=== PATIENT | male | born 1955 | race Caucasian/White ===

== ENCOUNTER 2017-06-24 09:02 | Emergency (ER) | payer BC ==
[2017-06-24] MEDS ORDERED: Sodium Chloride 0.9% 10 ML Syringe FLUSH PRN (09:10)
--- NOTE | 2017-06-24 09:27 | CT ---
Head CT Technique: Multiple axial sections through the brain were obtained. Intravenous contrast was not utilized. Comparison: No previous intracranial imaging. Findings: Ventricles along with basal cisterns and sulci over the convexities are within normal limits for the patient's age. No abnormal parenchymal densities are seen. No evidence of intracranial hemorrhage. No midline shift or mass effect is seen. Bone window settings were reviewed which shows no acute calvarial abnormality. Visualized sinuses are clear. Impression: 1. No acute abnormality is identified on noncontrast head CT exam. Diagnostic code #1
[2017-06-24] MEDS ORDERED: Labetalol 100 MG/20 ML MDV IVPUSH ONE (09:32)
--- NOTE | 2017-06-24 10:10 | EDM.PDOC ---
ED HPI GENERAL MEDICAL PROBLEM - General Chief Complaint: Neuro Symptoms/Deficits Stated Complaint: NUMBNESS ON HIS R SIDE Time Seen by Provider: 06/24/17 09:09 Source of Information: Reports: Patient History Limitations: Reports: No Limitations - History of Present Illness INITIAL COMMENTS - FREE TEXT/NARRATIVE: The patient presents with right facial tingling and right arm pain. This all started at 6am. His last time know well was 6am. He denies headache, fever, chills, cough, chest pain, shortness of breath, abdominal pain, nausea or vomiting. This has never happened to him before. It is better now. 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 He has no medical problems but he does admit he has not been to a doctor in awhile. 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 Onset: Gradual Duration: Hour(s): (6am) Location: Reports: Upper Extremity, Right (arm) Quality: Reports: Pressure Severity: Moderate Improves with: Reports: None Worsens with: Reports: Movement Context: Reports: Activity (Doing lots of field work) Associated Symptoms: Denies: Chest Pain, Headaches, Nausea/Vomiting, Shortness of Breath - Related Data Allergies Allergy/AdvReac Type Severity Reaction Status Date / Time No Known Allergies Allergy Verified 06/24/17 09:20 Home Meds: Home Meds Hydrochlorothiazide 25 mg PO DAILY #30 tablet 06/24/17 [Rx] Levothyroxine [Synthroid] 50 mcg PO ACBREAKFAST #30 tablet 06/24/17 [Rx] Past Medical History - Past Health History Medical/Surgical History: Denies Medical/Surgical History Social & Family History - Tobacco Use Smoking Status *Q: Never Smoker - Caffeine Use Caffeine Use: Reports: Soda - Recreational Drug Use Recreational Drug Use: No ED ROS GENERAL - Review of Systems Review Of Systems: See Below Constitutional: Reports: No Symptoms HEENT: Reports: No Symptoms Respiratory: Reports: No Symptoms Cardiovascular: Reports: No Symptoms Endocrine: Reports: No Symptoms GI/Abdominal: Reports: No Symptoms : Reports: No Symptoms Musculoskeletal: Reports: Other (Right arm pain) Skin: Reports: No Symptoms Neurological: Reports: Other (Tingling to the right face) ED EXAM, NEURO - Physical Exam Exam: See Below Exam Limited By: No Limitations General Appearance: Alert, No Apparent Distress Ears: Normal External Exam Nose: Normal Inspection Head Exam: Atraumatic, Normocephalic Neck: Normal Inspection Respiratory/Chest: No Respiratory Distress, Lungs Clear, Normal Breath Sounds Cardiovascular: Regular Rate, Rhythm, No Edema, No Murmur GI/Abdominal: Soft, Non-Tender, No Organomegaly, No Mass Neurological: Alert, No Motor/Sensory Deficits, Oriented x 3 EKG INTERPRETATION EKG Date: 06/24/17 Time: 09:28 Rhythm: Other (sinus bradycardia) Rate (Beats/Min): 56 [place]: Normal P-Wave: Present QRS: Normal ST-T: Normal QT: Normal EKG Interpretation Comments: LVH Course - Vital Signs Last Recorded V/S: Last Vital Signs Temp 97.2 F 06/24/17 09:08 Pulse 55 L 06/24/17 10:46 Resp 16 06/24/17 10:46 BP 194/103 H 06/24/17 10:46 Pulse Ox 99 06/24/17 10:46 - Orders/Labs/Meds Orders: Active Orders 24 hr Category Date Time Status Cardiac Monitoring [RC] . DIRECTED Care 06/24/17 09:10 Active EKG Documentation Completion [RC] STAT Care 06/24/17 09:10 Active Peripheral IV Care [RC] . DIRECTED Care 06/24/17 09:10 Active FREE T3 [REF] Stat Lab 06/24/17 09:20 Received Sodium Chloride 0.9% [Saline Flush] Med 06/24/17 09:10 Active 10 ml FLUSH ASDIRECTED PRN Peripheral IV Insertion Adult [OM.PC] Stat Oth 06/24/17 09:10 Ordered Medication Orders Sodium Chloride (Saline Flush) 10 ml FLUSH ASDIRECTED PRN PRN Reason: Keep Vein Open Last Admin: 06/24/17 09:44 Dose: 10 ml Labs: Laboratory Tests 06/24/17 06/24/17 06/24/17 Range/Units 09:07 09:20 09:20 WBC 8.91 (4.23-9.07) K/mm3 RBC 5.27 (4.63-6.08) M/mm3 Hgb 15.4 (13.7-17.5) gm/L Hct 45.5 (40.1-51.0) % MCV 86.3 (79.0-92.2) fl MCH 29.2 (25.7-32.2) pg MCHC 33.8 (32.2-35.5) g/dl RDW Std Deviation 44.0 H (35.1-43.9) fL Plt Count 310 (163-337) K/mm3 MPV 9.2 L (9.4-12.3) fl Neut % (Auto) 61.8 (34.0-67.9) % Lymph % (Auto) 25.8 (21.8-53.1) % [place] % (Auto) 10.1 (5.3-12.2) % Eos % (Auto) 2.0 (0.8-7.0) Baso % (Auto) 0.2 (0.1-1.2) % Neut # (Auto) 5.50 H (1.78-5.38) K/mm3 Lymph # (Auto) 2.30 (1.32-3.57) K/mm3 [place] # (Auto) 0.90 H (0.30-0.82) K/mm3 Eos # (Auto) 0.18 (0.04-0.54) K/mm3 Baso # (Auto) 0.02 (0.01-0.08) K/mm3 Sodium 138 (136-145) mEq/L Potassium 4.0 (3.5-5.1) mEq/L Chloride 104 (98-107) mEq/L Carbon Dioxide 28 (21-32) mEq/L Anion Gap 10.0 (5-15) BUN 15 (7-18) mg/dL Creatinine 1.1 (0.7-1.3) mg/dL Est Cr Clr Drug Dosing 76.42 mL/min Estimated GFR (MDRD) > 60 (>60) mL/min BUN/Creatinine Ratio 13.6 L (14-18) Glucose 110 (80-115) mg/dL POC Glucose 89 (80-115) mg/dL Calcium 9.0 (8.5-10.1) mg/dL Total Bilirubin 0.5 (0.2-1.0) mg/dL AST 25 (15-37) U/L ALT 38 (16-63) U/L Alkaline Phosphatase 101 (46-116) U/L Troponin I < 0.017 (0.00-0.056) ng/mL Total Protein 7.0 (6.4-8.2) g/dl Albumin 3.9 (3.4-5.0) g/dl Globulin 3.1 gm/dL Albumin/Globulin Ratio 1.3 (1-2) Free T4 (0.76-1.46) ng/dL TSH 3rd Generation (0.358-3.74) uIU/mL 06/24/17 06/24/17 Range/Units 09:20 09:42 WBC (4.23-9.07) K/mm3 RBC (4.63-6.08) M/mm3 Hgb (13.7-17.5) gm/L Hct (40.1-51.0) % MCV (79.0-92.2) fl MCH (25.7-32.2) pg MCHC (32.2-35.5) g/dl RDW Std Deviation (35.1-43.9) fL Plt Count (163-337) K/mm3 MPV (9.4-12.3) fl Neut % (Auto) (34.0-67.9) % Lymph % (Auto) (21.8-53.1) % [place] % (Auto) (5.3-12.2) % Eos % (Auto) (0.8-7.0) Baso % (Auto) (0.1-1.2) % Neut # (Auto) (1.78-5.38) K/mm3 Lymph # (Auto) (1.32-3.57) K/mm3 [place] # (Auto) (0.30-0.82) K/mm3 Eos # (Auto) (0.04-0.54) K/mm3 Baso # (Auto) (0.01-0.08) K/mm3 Sodium (136-145) mEq/L Potassium (3.5-5.1) mEq/L Chloride (98-107) mEq/L Carbon Dioxide (21-32) mEq/L Anion Gap (5-15) BUN (7-18) mg/dL Creatinine (0.7-1.3) mg/dL Est Cr Clr Drug Dosing mL/min Estimated GFR (MDRD) (>60) mL/min BUN/Creatinine Ratio (14-18) Glucose (80-115) mg/dL POC Glucose (80-115) mg/dL Calcium (8.5-10.1) mg/dL Total Bilirubin (0.2-1.0) mg/dL AST (15-37) U/L ALT (16-63) U/L Alkaline Phosphatase (46-116) U/L Troponin I (0.00-0.056) ng/mL Total Protein (6.4-8.2) g/dl Albumin (3.4-5.0) g/dl Globulin gm/dL Albumin/Globulin Ratio (1-2) Free T4 0.90 (0.76-1.46) ng/dL TSH 3rd Generation 4.763 H (0.358-3.74) uIU/mL Meds: Medications Generic Name Dose Route Start Last Admin Trade Name Freq PRN Reason Stop Dose Admin Sodium Chloride 10 ml 06/24/17 09:10 06/24/17 09:44 Saline Flush FLUSH 10 ml ASDIRECTED PRN Administration Keep Vein Open Discontinued Medications Generic Name Dose Route Start Last Admin Trade Name Freq PRN Reason Stop Dose Admin Labetalol HCl 20 mg 06/24/17 09:32 06/24/17 09:42 Normodyne IVPUSH 06/24/17 09:33 20 mg ONETIME ONE Administration Protocol - Re-Assessments/Exams Free Text/Narrative Re-Assessment/Exam: 06/24/17 11:15 A stroke alert was called. I came into the room right away. The patient's last known well was 6am. He had right facial tingling. His CT looks good. His BP was very elevated at 227 systolic. I ordered labetolol 20mg IV. His pulse was in the 60s at that time. His CBC and CMP look good. His troponin is negative. His BP is better. He feels better. I checked a TSH and it was elevated at 4.763. I have ordered a T4 and T3. His daughter is hypothyroid. I feel he may have it also. He is borderline. We could wait for the T4 and T3 but he would like to try it and I will put him on HCTZ for the blood pressure. Departure - Departure Time of Disposition: 11:25 Disposition: Home, Self-Care 01 Condition: Good Clinical Impression: Tingling of skin Hypertension Qualifiers: Hypertension type: essential hypertension Qualified Code(s): I10 - Essential ( primary) hypertension Hypothyroidism Qualifiers: Hypothyroidism type: unspecified Qualified Code(s): E03.9 - Hypothyroidism, unspecified - Discharge Information Prescriptions: Hydrochlorothiazide 25 mg PO DAILY #30 tablet Levothyroxine [Synthroid] 50 mcg PO ACBREAKFAST #30 tablet Referrals: Italo Rockwell [Physician] - 1 Week Forms: ED Department Discharge Additional Instructions: Take the hydrochlorothiazide daily for your blood pressure and the levothyroxine for your thyroid and follow up with Dr Gaviria or any doctor of you choosing within 1 week. Please return if you are worse. - My Orders Last 24 Hours: My Active Orders 06/24/17 09:10 Cardiac Monitoring [RC] . DIRECTED EKG Documentation Completion [RC] STAT Peripheral IV Care [RC] . DIRECTED Sodium Chloride 0.9% [Saline Flush] 10 ml FLUSH ASDIRECTED PRN Peripheral IV Insertion Adult [OM.PC] Stat 06/24/17 09:20 FREE T3 [REF] Stat - Assessment/Plan Last 24 Hours: My Active Orders 06/24/17 09:10 Cardiac Monitoring [RC] . DIRECTED EKG Documentation Completion [RC] STAT Peripheral IV Care [RC] . DIRECTED Sodium Chloride 0.9% [Saline Flush] 10 ml FLUSH ASDIRECTED PRN Peripheral IV Insertion Adult [OM.PC] Stat 06/24/17 09:20 FREE T3 [REF] Stat
--- NOTE | 2017-06-24 10:32 | CR ---
Chest: Portable view of the chest was obtained. Comparison: No previous study. Heart size and mediastinum are normal. Lungs are clear. Bony structures are grossly intact. Impression: 1. Nothing acute is identified on portable chest x-ray. Diagnostic code #1
[2017-06-24 11:38] VITALS: BP 184/99
== END 2017-06-24 11:35 | disposition home or self-care (01) ==
LOC: JD.ED 09:02
DX: R20.2 Paresthesia of skin (principal); I10 Essential (primary) hypertension; E03.9 Hypothyroidism, unspecified; Z79.899 Other long term (current) drug therapy
CPT/HCPCS: 36415; 70450; 71010; 80053; 82962; 84439; 84443; 84481; 84484; 85025; 93005; 96374; 96376; 99285; A9270; J7050; 99284